=== PATIENT | female | born 1945 | race Caucasian/White ===

== ENCOUNTER 2018-05-25 12:55 | Inpatient (IN) | payer MEDICARE, OTHER, SELFPAY ==
[2018-05-11 11:13] VITALS: BP 141/92; PULSE 80; RESP 17; TEMP 37.2; O2SAT 97; BMI 29.5
[2018-05-25] VITALS (8 sets, daily range): BP systolic 112–159; BP diastolic 56–89; PULSE 67–85; RESP 14–18; TEMP 36.5–36.9; O2SAT 94–98; BMI 29.5; BMI 28.8
[2018-05-25] MEDS: Acetaminophen 500 MG Tablet 1000 MG PO ×2 (13:38→21:42)
[2018-05-25] MEDS: Celecoxib 200 MG Capsule 400 MG PO (13:38)
[2018-05-25] MEDS: oxyCODONE HCl Cr 10 MG Tablet PO (13:39)
--- NOTE | 2018-05-25 14:30 | KNEE_PTH ---
PATIENT: SHERIE FERMIN LOC: MS3 U#:[id number] AGE/SX: 73/F ROOM: [facility] [place] RE05/25/[address]: Dr. Chinmay Romero MD : [id number] BED: 1 DIS: 05/26/2018 SPEC #: [id number] RECD: 05/26/18 09:22 STATUS: CÉSAR RECynthia #: [id number] RACHNA: 05/25/18 14:[address]: Chinmay Romero DEPT: SURGICAL PATHOLOGY RECD BY: Torrey Andrade ENTERED: 05/26/18 11:05 SP TYPE: TOTAL KNEE OTHR DR: Dr. Edd Tran MD Tissues: Knee, NOS Procedures: Decalcification bone/plaque Surgery Specimen Level IV HEADER OPERATION: Total knee replacement PRE-OP DIAGNOSIS: Osteoarthritis TISSUE SUBMITTED: Bone and tissue MICROSCOPIC DIAGNOSIS Bone and tissue of knee, resection: Severe degenerative joint disease Mild synovial hyperplasia AM:noris 05/29/18 MICROSCOPIC DESCRIPTION Slides are reviewed. GROSS DESCRIPTION Received is one container designated bone and soft tissue knee. The specimen consists of multiple fragments of horta-yellow bone measuring in aggregate 12 x 10 x 4 cm. Also in the specimen container are multiple fragments of yellow-white soft tissue measuring in aggregate 7 x 6 x 3 cm. A number of bony fragments contain articular surfaces consistent with tibial plateau and femoral condyle and displaying prominent osteophyte formation, eburnation, and bone erosion. Double Back Operator sections are submitted in two cassettes as follows: 1 - soft tissue, 2 - bone after decalcification. / LING:sp 05/26/18 TC: 5 CPT: 76409, 12672
[2018-05-25] MEDS: Cefazolin 2 GM in 0.9% Normal Saline 100 ML IV (14:50)
--- NOTE | 2018-05-25 16:18 | PCM.OP.BLANK ---
Operative Report Date of Procedure: 05/25/18 Preoperative diagnosis: [Right] knee severe primary osteoarthritis Postoperative diagnosis: Same Title of procedure : [Right] total knee replacement Surgeon: Chinmay Romero MD Coloring Machine Operator: Kaykay Davis PA-C Anesthesia: Spinal Anesthesiologist: Dr. Ernandez Special medications: Ancef, tranexamic acid Indications for surgery: Patient is a [73]-year-old [female] with a history of knee arthritis appropriately treated and failed conservative measures and wished to proceed with total knee replacement. Patient was cleared for surgery by the medical doctor and has been evaluated by the anesthesia staff Findings: Intraoperative findings showed severe arthritis of the knee. Patient underwent knee replacement using [employer] tri[employer] total knee components. Size [5] femur, size [4] tibia, [35 x 10] asymmetric X3 patella, size [4-9 CS] X3 tibial polyethylene insert, knee was nicely balanced. Patella tracked well. Patient underwent standard wound closure in layers. Vicryl and strata fix sutures utilized. assistant golf coach, physician marketing operations assistant, was utilized throughout the entire procedure. They were vital in helping with patient positioning, holding of retractors, exposing the tissues adequately for safe completion of the procedure including cutting of the bone, helping roads and parking lots sweeper operator appropriate alignment and sizing of the components, implantation of the components, as well as wound closure, bandage application, and safe patient transfer. Without certified surgical first assistant, physician marketing operations assistant, surgical time would have been significantly increased, and surgical outcome could have been less optimal. Description of procedure: The patient was taken to the OR, transferred to the OR table. They were given a spinal anesthetic. Ancef was given IV preoperatively. Tranexamic acid was given IV preoperatively. Well-padded tourniquet was applied to the upper thigh of the operative leg. Nonoperative leg had a AMNA hose and SCD on throughout. Operative limb was prepped padded and draped in usual orthopedic sterile fashion for the procedure. We began by injecting the pain relieving solution in the anterior superior aspect of the knee region. The limb was exsanguinated, and the tourniquet was applied to 300 mmHg. Made a midline incision through skin, subcutaneous tissue, bringing down us on the extensor mechanism. Medial parapatellar arthrotomy was carried out. Straw-colored joint fluid was evacuated. We raised a sleeve of tissue off the upper medial tibia. Resected some of the infrapatellar fat pad. We remove degenerative medial and lateral meniscus. Removed bone spurs from about the joint. We removed tissue off the anterior aspect of the distal femur. Patella was translated laterally and/or everted as needed throughout the procedure. ACL was resected. PCL was preserved. Collateral ligaments were preserved. Physician placed the retractors and marketing operations assistant held retractors protecting above ligaments throughout the procedure. Drill was placed up the distal femur. Flex guide edson was placed up the femoral canal. We resected 8 mm off of the distal femur. 6? valgus cut. Next cutting block was applied to the front of the femur. 3? of external rotation . We sized off that block and decided on the appropriate size femur. 4-in-1 cutting block was applied to the distal femur and held in place with 2 pins. Coloring Machine Operator again held retractors to protect the soft tissues while surgeon performed anterior, posterior, and chamfer cuts. Bony fragments were removed. PCL retractor was placed and collateral ligament protectors placed by the surgeon, held by the assistance. Tibial external alignment guide was utilized under standard technique going down the shaft of the tibia, to the base of the second metatarsal. Appropriate posterior slope was built in. Coloring Machine Operator help roads and parking lots sweeper operator alignment. We went 2 mm off the deficient side of the tibia. Cutting block was held in place with 3 pins. Again checked the external alignment. Tibial cut carried out with a saw while the marketing operations assistant held retractors protecting the soft tissues about the anterior, medial, lateral, and posterior knee. Bone fragment removed. We then sized off the upper tibia with the help of the marketing operations assistant. We then checked flexion extension gaps finding them to be adequate and equal. Next the distal femoral trial was applied. Tibial tray was allowed to freefloat with a 9 mm insert. Knee was flexed and extended an external alignment guide is utilized. Tibial trial was pinned in place. Drill holes were placed into the distal femoral trial and it was removed. Punch was used on the upper tibial component and that was removed. The sclerotic bone was softened with a sharp pin. Bone spurs removed from the posterior medial and posterior lateral aspect of the femur while the marketing operations assistant lifted up on the distal femur and exposed each compartment. Patella was everted and measured and appropriate resection was carried out while the marketing operations assistant held the guide and patella in good position. Patellar remnant measured to be at or just greater than 14 mm. Patella was sized. Clamp was utilized. 3 drill holes were placed through the clamp held by the marketing operations assistant. Trial patella was placed and removed. Bleeding was controlled at the back of the knee with the bovey. Posterior knee soft tissues were carefully injected with pain relieving solution. Components were checked and open. Two full batches of bone cement were mixed. Knee was thoroughly irrigated by the marketing operations assistant while surgeon fashioned a bone plug that was placed in the femoral canal hole. The bony surfaces cleaned and dried. When the cement was of the appropriate texture the tibia, femur, and then patella was cemented in place. Coloring Machine Operator held retractors exposing the bony surfaces of the tibia and femur which were hammered in position. Patella clamped into position. The excess bone cement removed. A trial insert applied to the tibia. Knee was held in full extension while the cement hardened. While the cement was hardening pain relieving solution was injected throughout the knee. When cement was fully hardened tourniquet was deflated. We re-trialed with the help of the marketing operations assistant and then placed the appropriate sized polyethylene component. We thoroughly irrigated and debrided the knee. Bleeding controlled with the Bovie. Knee was again thoroughly irrigated. Patella noted to track nicely. We repaired the arthrotomy with a combination of #1 Vicryl and #2 strata fix. We did a mid layer of 1 Vicryl and #1 strata fix running. We then did inverted 2-0 vicryl . We then applied Steri-Strips over skin prep. Mepilex dressing applied. AMNA hose and SCDs applied. Patient was awoken from their anesthetic, transferred back to their own bed and recovery room in satisfactory condition. Second dose of IV Tranexamic acid was given while closing wound. Patient was admitted, appropriate IV antibiotic to be utilized as well as medication for DVT prevention. Hopeful discharge in 1-2 days. Hospitalist service and Physical therapy will be consulted. This note was generated with [employer] dictation software. It may contain incorrect words, spelling, and punctuation that were not noted in checking the note before signing.
--- NOTE | 2018-05-25 16:21 | OP.PCM_ITS ---
Operative Report Date of Procedure: 05/25/18 Preoperative diagnosis: [Right] knee severe primary osteoarthritis Postoperative diagnosis: Same Title of procedure : [Right] total knee replacement Surgeon: Chinmay Romero MD General I Farmworker: Kaykay Davis PA-C Anesthesia: Spinal Anesthesiologist: Dr. Ernandez Special medications: Ancef, tranexamic acid Indications for surgery: Patient is a [73]-year-old [female] with a history of knee arthritis appropriately treated and failed conservative measures and wished to proceed with total knee replacement. Patient was cleared for surgery by the medical doctor and has been evaluated by the anesthesia staff Findings: Intraoperative findings showed severe arthritis of the knee. Patient underwent knee replacement using [employer] tri[employer]im[employer]on total knee components. Size [5] femur, size [4] tibia, [35 x 10] asymmetric X3 patella, size [4-9 CS] X3 tibial polyethylene insert, knee was nicely balanced. Patella tracked well. Patient underwent standard wound closure in layers. Vicryl and strata fix sutures utilized. administrative services assistant, physician kitchen assistant, was utilized throughout the entire procedure. They were vital in helping with patient positioning, holding of retractors, exposing the tissues adequately for safe completion of the procedure including cutting of the bone, helping deaf interpreter appropriate alignment and sizing of the components, implantation of the components, as well as wound closure, bandage application, and safe patient transfer. Without surgical instruments inspector, physician kitchen assistant, surgical time would have been significantly increased, and surgical outcome could have been less optimal. Description of procedure: The patient was taken to the OR, transferred to the OR table. They were given a spinal anesthetic. Ancef was given IV preoperatively. Tranexamic acid was given IV preoperatively. Well-padded tourniquet was applied to the upper thigh of the operative leg. Nonoperative leg had a AMNA hose and SCD on throughout. Operative limb was prepped padded and draped in usual orthopedic sterile fashion for the procedure. We began by injecting the pain relieving solution in the anterior superior aspect of the knee region. The limb was exsanguinated, and the tourniquet was applied to 300 mmHg. Made a midline incision through skin, subcutaneous tissue, bringing down us on the extensor mechanism. Medial parapatellar arthrotomy was carried out. Straw-colored joint fluid was evacuated. We raised a sleeve of tissue off the upper medial tibia. Resected some of the infrapatellar fat pad. We remove degenerative medial and lateral meniscus. Removed bone spurs from about the joint. We removed tissue off the anterior aspect of the distal femur. Patella was translated laterally and/or everted as needed throughout the procedure. ACL was resected. PCL was preserved. Collateral ligaments were preserved. Physician placed the retractor s and kitchen assistant held retractors protecting above ligaments throughout the procedure. Drill was placed up the distal femur. Flex guide edson was placed up the femoral canal. We resected 8 mm off of the distal femur. 6? valgus cut. Next cutting block was applied to the front of the femur. 3? of external rotation . We sized off that block and decided on the appropriate size femur. 4-in-1 cutting block was applied to the distal femur and held in place with 2 pins. General I Farmworker again held retractors to protect the soft tissues while surgeon performed anterior, posterior, and chamfer cuts. Bony fragments were removed. PCL retractor was placed and collateral ligament protectors placed by the surgeon, held by the assistance. Tibial external alignment guide was utilized under standard technique going down the shaft of the tibia, to the base of the second metatarsal. Appropriate posterior slope was built in. General I Farmworker help deaf interpreter alignment. We went 2 mm off the deficient side of the tibia. Cutting block was held in place with 3 pins. Again checked the external alignment. Tibial cut carried out with a saw while the kitchen assistant held retractors protecting the soft tissues about the anterior, medial, lateral, and posterior knee. Bone fragment removed. We then sized off the upper tibia with the help of the kitchen assistant. We then checked flexion extension gaps finding them to be adequate and equal. Next the distal femoral trial was applied. Tibial tray was allowed to freefloat with a 9 mm insert. Knee was flexed and extended an external alignment guide is utilized. Tibial trial was pinned in place. Drill holes were placed into the distal femoral trial and it was removed. Punch was used on the upper tibial component and that was removed. The sclerotic bone was softe johanny with a sharp pin. Bone spurs removed from the posterior medial and posterior lateral aspect of the femur while the kitchen assistant lifted up on the distal femur and exposed each compartment. Patella was everted and measured and appropriate resection was carried out while the kitchen assistant held the guide and patella in good position. Patellar remnant measured to be at or just greater than 14 mm. Patella was sized. Clamp was utilized. 3 drill holes were placed through the clamp held by the kitchen assistant. Trial patella was placed and removed. Bleeding was controlled at the back of the knee with the bovey. Posterior knee soft tissues were carefully injected with pain relieving solution. Components were checked and open. Two full batches of bone cement were mixed. Knee was thoroughly irrigated by the kitchen assistant while surgeon fashioned a bone plug that was placed in the femoral canal hole. The bony surfaces cleaned and dried. When the cement was of the appropriate texture the tibia, femur, and then patella was cemented in place. General I Farmworker held retractors exposing the bony surfaces of the tibia and femur which were hammered in position. Patella clamped into position. The excess bone cement removed. A trial insert applied to the tibia. Knee was held in full extension while the cement hardened. While the cement was hardening pain relieving solution was injected throughout the knee. When cement was fully hardened tourniquet was deflated. We re-trialed with the help of the kitchen assistant and then placed the appropriate sized polyethylene component. We thoroughly irrigated and debrided the knee. Bleeding controlled with the Bovie. Knee was again thoroughly irrigated. Patella noted to track nicely. We repaired the arthrotomy with a combination of #1 Vicryl and #2 strata fix. We did a mid layer of 1 Vicryl and #1 strata fix running. We then did inverted 2-0 vicryl . We then applied Steri-Strips over skin prep. Mepilex dressing applied. AMNA hose and SCDs applied. Patient was awoken from their anesthetic, transferred back to their own bed and recovery room in satisfactory condition. Second dose of IV Tranexamic acid was given while closing wound. Patient was admitted, appropriate IV antibiotic to be utilized as well as medication for DVT prevention. Hopeful discharge in 1-2 days. Hospitalist service and Physical therapy will be consulted. This note was generated with [employer] dictation software. It may contain incorrect words, spelling, and punctuation that were not noted in checking the note before signing.
--- NOTE | 2018-05-25 16:45 | RAD_ITS ---
STUDY: X-RAY - RIGHT KNEE REASON FOR EXAM: Female, 73 years old. Postop TECHNIQUE: 2 view(s) of the knee. COMPARISON: None. FINDINGS: Knee prosthesis has been placed in anatomic alignment and position.. There is residual gas and fluid in the suprapatellar bursa postsurgically. There are also radiopaque densities posterior to the patella on the lateral view possibly representing antibiotic beads however clinical correlation is recommended RAD/Knee 1 or 2 Views IMPRESSION: Status post knee prosthesis Electronically Signed: Jorge Lindsey MD at 17:08 EST , Service support ,
[2018-05-25] MEDS: Aspirin 325 MG Tablet PO (18:01)
[2018-05-25] MEDS: Cefazolin 1 GM/50 ML BAG IV (18:01)
[2018-05-25] MEDS: Folic Acid 1 MG Tablet PO (18:01)
[2018-05-25] MEDS: Lactated Ringers 1,000 ML 125 ML IV (20:51)
[2018-05-25] MEDS: Ondansetron 4 MG/2 ML Vial IV (20:51)
[2018-05-25] MEDS: Senna/Docusate Sodium 1 Tablet 2 TABLET PO (21:43)
[2018-05-25] MEDS: morphine SR 15 MG Tablet PO (21:43)
[2018-05-26] MEDS: Cefazolin 1 GM/50 ML BAG IV ×2 (00:23→06:47)
[2018-05-26 02:14] VITALS: BP 107/74; PULSE 60; RESP 16; TEMP 36.8; O2SAT 97
[2018-05-26] MEDS: Acetaminophen 500 MG Tablet 1000 MG PO ×2 (05:10→13:08)
[2018-05-26] MEDS: 0.9% NaCl Peripheral Flush Adult/Peds IV ×2 (05:12→06:48)
[2018-05-26 05:51] LABS: Hematocrit 31.3 % (37-47); Hemoglobin 10.2 g/dl (12.0-15.0); Mean Corp Hgb Conc 32.6 g/gl (32-36); Mean Corpuscular Hgb 29.4 pg (27.0-32.0); Mean Corpuscular Volume 90.2 fL (81-99); Mean Platelet Vol. 10.8 fl (6.2-12.0); Platelet Count 193 K/mm3 (150-450); RBC Distribution Width CV 13.8 % (11.6-14.6); RBC Distribution Width SD 43.9 fl (35.1-43.9); Red Blood Count 3.47 M/mm3 (4.2-5.4); White Blood Count 9.3 K/mm3 (4.4-11.0)
[2018-05-26 05:54] LABS: Scan Indicated on CBC? Y/N NO
[2018-05-26 06:05] LABS: Anion Gap 9 (5-15); BUN 26 mg/dL (7-18); BUN/Creat Ratio 21.8 RATIO (10-20); Calcium,Total 8.5 mg/dL (8.5-10.1); Chloride 108 mmol/L (98-107); Creatinine, Serum 1.19 mg/dL (0.55-1.02); EST Glomerular Filtration Rate 47 mL/min (>60); Est Glom Filt Rate - Afr Amer 57 mL/min (>60); Estimated Creatinine Clearance 33.79 ml/min; Glucose 95 mg/dL (74-106); Sodium Level 142 mmol/L (136-145)
--- NOTE | 2018-05-26 06:23 | PCM.PN.ORT ---
Subjective: Patient is postoperative day #1 from right total knee replacement. She denies chest pain or shortness of breath. No productive cough. She did vomit last evening. She feels fine now. She is hoping for discharge to home later today. Pain is tolerable. Objective: Right knee bandage is on clean and dry. Mepilex dressing has one spot of dried blood, small, central. Knee motion is 0-70 degrees. She is able to do a straight leg raise right and left leg. She has good active plantar flexion dorsiflexion toes and ankles. AMNA hose and SCDs are on. No calf pain or swelling. Negative Homans sign. Clinically knees are stable and well aligned. X-rays AP and lateral of right knee from recovery room shows a cemented [place] total knee replacement in good position without obvious loosening failure or fracture. X-ray report reviewed Laboratory work and vital signs reviewed - Physical Exam Vital Signs Temp Pulse Resp BP Pulse Ox 98.2 F 60 16 107/74 97 05/26/18 02:14 05/26/18 02:14 05/26/18 02:14 05/26/18 02:14 05/26/18 02:14 Oxygen Flow Rate (L/min) 2 Oxygen Delivery Method Nasal Cannula Weight: 73.936 kg Body Mass Index (BMI) 28.8 Intake and Output for Last 24 Hours 05/24/18 05/25/18 05/26/18 23:59 23:59 23:59 Intake Total 1979 2481 / 2481 Output Total 700 / 700 Balance 1979 1781 / 1781 Laboratory Tests Past 24 Hrs 05/26/18 05/26/18 05:34 05:34 WBC 9.3 RBC 3.47 L Hgb 10.2 L Hct 31.3 L MCV 90.2 MCH 29.4 MCHC 32.6 RDW 13.8 RDW Differential 43.9 Plt Count 193 MPV 10.8 Sodium 142 Potassium 4.0 Chloride 108 H Carbon Dioxide 25.0 Anion Gap 9 BUN 26 H Creatinine 1.19 H Estim Creat Clear Calc 33.79 Est GFR (MDRD) Af Amer 57 L Est GFR (MDRD) Non-Af 47 L BUN/Creatinine Ratio 21.8 H Glucose 95 Calcium 8.5 Medical Necessity - Tobacco Use Smoking Status: Never smoker Assessment/Plan Right total knee replacement for arthritis, continue current treatment with therapy, ice, pain medications. Incentive spirometer use. Aspirin for DVT prevention. Continue knee and ankle range of motion as explained. Weightbearing as tolerated. Hopeful discharge to home later today. She is planning on doing outpatient physical therapy at [facility]. I recommended [id number] stool softener for her. She understands wound and bandage care.
[2018-05-26] MEDS: Aspirin 325 MG Tablet PO (07:55)
[2018-05-26] MEDS: Senna/Docusate Sodium 1 Tablet 2 TABLET PO (07:56)
[2018-05-26] MEDS: amLODIPine 2.5 MG Tablet PO (07:56)
[2018-05-26] MEDS: Lisinopril 20 MG Tablet PO (07:57)
[2018-05-26 08:13] VITALS: BP 109/67; PULSE 98; RESP 18; TEMP 37.2; O2SAT 96
[2018-05-26] MEDS: Ondansetron 4 MG/2 ML Vial IV (09:19)
--- NOTE | 2018-05-26 11:40 | CASEMGMT ---
SILVIO LUCERO Face to Face with patient for initial transition planning/care coordination assessment. RN CM introduced self and role at [facility]. Patient sitting in chair, alert and oriented. Patient willing to participate in assessment and is able to answer all questions appropriately. Care providers, pharmacy, and demographics verified. Patient wishes to discharge home with therapy setup with [facility]. SILVIO LUCERO to call and setup therapy at [facility]. Patient states she has no further needs or concerns at this time. CM to follow for discharge planning needs that may arise. PCP: Marc Specialists: None Preferred Pharmacy: [facility] Insurance: Juan C O[employer] supp Prescription Benefit: Yes Living Will/HPOA: Yes, marjorie Negro HPOA LNOK: Son Living Arrangements: Patient lives alone in 2 story home with bed and bath on the first floor. Transportation: Son DME/C: Patient has cane, grab bars, walker, rollator. Patient to have therapy at [facility] Disposition Plan: Patient to discharge home with outpatient therapy, family support, and follow-up plans in place. Carlene ARIAS, RN, CM
[2018-05-26] MEDS: oxyCODONE 5 MG Tablet PO (13:08)
--- NOTE | 2018-05-26 14:07 | DCINST_ITS ---
Discharge Diet: No Restrictions Discharge Activity: May Not Drive May shower in (days): 2 Ice area for (Minutes): 20 - every hour while awake. Weight Bearing Status: Weight bearing as tolerated Elevate: Operative Extremity Additional Activity Instructions:: Wear elastic stockings for 2 weeks after your surgery. see postop pink sheet Call your doctor if your incision/area has: Continuous Slow Oozing, Sudden Increased Bleeding, Increased Pain/ Swelling, Increased Redness, Foul Smelling Discharge Call your doctor if you observe: Fever of 101 or Higher, Coldness, Increased Pain, Numbness or Tingling, Change in Color, Calf discomfort, Uncontrolled pain Remove Dressing in (days):: 5 Cleanse incision/area with: Soap & Water Additional Dressing/Incision Instructions:: See postop pink sheet Allergies/Adverse Reactions: Allergies SEASONAL ALLERGIES Allergy (Uncoded 05/25/18 13:29) Other Medications to take at Discharge Amlodipine [Norvasc] 2.5 mg PO DAILY 05/11/18 Calcium Carbonate/Vitamin D3 [Calcium 600-Vit D3 200 Tablet] 1 each PO DAILY 05/11/18 Cholecalciferol (Vitamin D3) [Vitamin D3] 1,000 unit PO DAILY 05/11/18 Folic Acid 1 mg PO SUMOWETHFRSA 05/11/18 Lisinopril [Zestril] 20 mg PO DAILY 05/11/18 Multivitamin [Multiple Vitamins] 1 each PO DAILY 05/11/18 Acetaminophen [Tylenol] 1,000 mg PO Q8 tablet 05/26/18 Aspirin 325 mg PO BIDCM #28 tablet 05/26/18 Oxycodone [Oxyir] 5 - 10 mg PO Q4H PRN PRN 7 Days #56 tab 05/26/18 Senna/Docusate Sodium [Senokot-S] 2 tablet PO BID #30 tablet 05/26/18 The following prescriptions were given: Oxycodone [Oxyir] 5 - 10 mg PO Q4H PRN PRN 7 Days #56 tab PRN Reason: Mod-Severe Pain (4-04/22) Aspirin 325 mg PO BIDCM #28 tablet Senna/Docusate Sodium [Senokot-S] 2 tablet PO BID #30 tablet Primary Care Physician: Edd Tran [Primary Care Provider] - Test Results: Test results from this visit will be discussed in further detail at your follow- up appointment, if applicable. Proposed Discharge Date: 05/26/18
== END 2018-05-26 14:20 | disposition home or self-care (01) | DRG 470 ==
PROVIDERS: Admitting Provider Orthopaedic Surgery; Family Provider Internal Medicine; PCP Internal Medicine; Referring Provider Orthopaedic Surgery; Visit Provider Orthopaedic Surgery
PROC: 0SRC0J9 Replacement of Right Knee Joint with Synthetic Substitute, Cemented, Open Approach (ICD-10-PCS; CPT 27447; principal; 2018-05-25 14:05)
DX: M17.11 Unilateral primary osteoarthritis, right knee (principal)
CPT/HCPCS: 36415; 73560; 80048; 85027; 87077; 87081; 88305; 88311; 97110; 97162; 97165; 97530; C1776; J7040; J7120; A4216; J2405

== ENCOUNTER → 2020-02-18 09:57 | Outpatient (CLI) | payer MEDICARE, OTHER, SELFPAY ==
[2018-05-25 17:35] VITALS: BMI 28.8
--- NOTE | 2020-02-18 10:02 | RAD_ITS ---
STUDY: X-RAY - LEFT HAND REASON FOR EXAM: Female, 74 years old. RHEUMATOID ARTHRITIS, OSTEOARTHRITIS TECHNIQUE: 3 view(s) of the hand. COMPARISON: None. FINDINGS: Normal radiocarpal articulation. Normal distal radioulnar joint. Normal visualized carpal bones. There is degenerative joint disease of the scaphotrapezium / trapezoid articulation. The remainder of the carpal articulations are normal. There is degenerative arthrosis of the carpometacarpal (CMC) articulation of the thumb. Normal second through fifth carpometacarpal joints. Normal metacarpi. Normal metacarpophalangeal joint of the thumb. Normal interphalangeal joint of the thumb. Normal proximal and distal phalanges of the thumb. Normal metacarpophalangeal joints of the second through fifth fingers. There is diffuse articular joint space narrowing of the proximal and distal interphalangeal joints of the second through fifth fingers, but without erosive changes or periarticular soft tissue swelling. Normal phalanges of the second through fifth fingers. The soft tissue structures are unremarkable. RAD/Hand Min 3 Views IMPRESSION: Degenerative joint disease of the hand and wrist, as described above. Electronically Signed: Jason Wilson MD at 7:26 EDT Tel , Service support ,
--- NOTE | 2020-02-18 10:02 | RAD_ITS ---
STUDY: X-RAY - RIGHT HAND REASON FOR EXAM: Female, 74 years old. RHEUMATOID ARTHRITIS, OSTEOARTHRITIS TECHNIQUE: 3 view(s) of the hand. COMPARISON: None. FINDINGS: There is joint space narrowing of the radiocarpal articulation consistent with degenerative arthrosis. Normal distal radioulnar joint. Normal visualized carpal bones. There is degenerative joint disease of the scaphotrapezium / trapezoid articulation. The remainder of the carpal articulations are normal. There is degenerative arthrosis of the carpometacarpal (CMC) articulation of the thumb. Normal second through fifth carpometacarpal joints. Normal metacarpi. Normal metacarpophalangeal joint of the thumb. Normal interphalangeal joint of the thumb. Normal proximal and distal phalanges of the thumb. Normal metacarpophalangeal joints of the second through fifth fingers. There is diffuse articular joint space narrowing of the proximal and distal interphalangeal joints of the second through fifth fingers, but without erosive changes or periarticular soft tissue swelling. Normal phalanges of the second through fifth fingers. The soft tissue structures are unremarkable. RAD/Hand Min 3 Views IMPRESSION: Degenerative joint disease of the hand and wrist, as described above. Electronically Signed: Jason Wilson MD at 7:27 EDT Tel , Service support ,
--- NOTE | 2020-02-18 10:02 | RAD_ITS ---
STUDY: X-RAY - PELVIS REASON FOR EXAM: Female, 74 years old. RHEUMATOID ARTHRITIS, OSTEOARTHRITIS TECHNIQUE: One view of the pelvis was obtained. COMPARISON: None. FINDINGS: There is a non-specific bowel gas pattern. Normal visualized soft tissue structures. Normal bilateral iliac wings, sacroiliac joints and visualized sacrum. Normal visualized bilateral superior and inferior pubic rami. Normal pubic symphysis. Normal ischial tuberosities. Normal visualized right femoral head. Normal right acetabulum. Normal right hip joint. There are osteoarthritic changes of the left femoral head with marginal osteophyte formation. Normal left acetabulum. Normal left hip joint. RAD/Pelvis 1 or 2 Views IMPRESSION: Mild left hip arthrosis. Electronically Signed: Jason Wilson MD at 7:25 EDT Tel , Service support ,
[2020-02-18 12:51] LABS: Absolute Lymphocyte Count 1.76 X10^3/uL (0.83-4.51); Absolute Neutrophil Count 6.9 X10^3/uL (2.0-7.7); Basophil# 0.05 X10^3/uL; Basophil% 0.5 % (0-1); Eosinophil# 0.06 X10^3/uL; Eosinophils% 0.6 % (0-5); Hematocrit 44.1 % (37-47); Hemoglobin 14.3 g/dL (12.0-15.0); Lymphocyte # 1.76 X10^3/ul (4.0); Lymphocyte % 18.8 % (19-41); Mean Corp Hgb Conc 32.4 g/dL (32-36); Mean Corpuscular Hgb 29.1 pg (27.0-32.0); Mean Corpuscular Volume 89.8 fL (81-99); Mean Platelet Vol. 11.2 fl (6.2-12.0); Monocyte# 0.53 X10^3/uL; Monocyte% 5.7 % (0-10); NRBC Flagged by Analyzer 0 % (0-5); Neutrophil # 6.91 X10^3/uL (2.7-7.7); Neutrophil % 74.1 % (47-70); Platelet Count 296 K/mm3 (150-450); RBC Distribution Width CV 14.4 % (11.6-14.6); RBC Distribution Width SD 46.3 fl (35.1-43.9); Red Blood Count 4.91 M/mm3 (4.2-5.4); White Blood Count 9.3 K/mm3 (4.4-11.0)
[2020-02-18 12:53] LABS: Erythrocyte Sedimentation Rate 5 mm/hr (0-30)
[2020-02-18 13:11] LABS: ALB/GLOB Ratio 1.1 RATIO (0.9-2.4); AST(SGOT) 31 U/L (15-37); Alanine Aminotransfer ALT/SGPT 24 U/L (13-56); Albumin, Serum 4.3 g/dL (3.2-5.0); Alkaline Phosphatase 124 U/L (45-117); Anion Gap 6 (5-15); BUN 30 mg/dL (7-18); CRP 2.98 mg/L (0.0-3.0); Calcium,Total 9.8 mg/dL (8.5-10.1); Chloride 106 mmol/L (98-107); Creatinine, Serum 1.25 mg/dL (0.55-1.02); EST Glomerular Filtration Rate 44 mL/min (>60); Est Glom Filt Rate - Afr Amer 54 mL/min (>60); Globulin 3.8 g/dL (2.2-4.2); Glucose 93 mg/dL (74-106); Protein, Total 8.1 g/dL (6.4-8.2); Rheumatoid Factor < 10.0 IU/mL (<15); Sodium Level 141 mmol/L (136-145)
[2020-02-18 13:43] LABS: Hepatitis B Surface Antibody Non-Reactive; Hepatitis B Surface Antigen Non-Reactive (Nonreactive); Hepatitis C Antibody Non-Reactive (Nonreactive)
[2020-02-19 21:06] LABS: ANTINUCLEAR ANTIBODIES DIRECT Negative (Negative)
[2020-02-21 04:03] LABS: CCP IgG Antibodies 11 units (0-19); Hepatitis B Core AB IgM Negative (Negative)
== END ==
PROVIDERS: PCP Internal Medicine; Referring Provider Internal Medicine Rheumatology; Visit Provider Internal Medicine Rheumatology
DX: M05.79 Rheumatoid arthritis with rheumatoid factor of multiple sites without organ or systems involvement (principal); M19.041 Primary osteoarthritis, right hand; I10 Essential (primary) hypertension; J30.9 Allergic rhinitis, unspecified; Z79.899 Other long term (current) drug therapy
CPT/HCPCS: 36415; 72170; 73130; 80053; 85025; 85652; 86038; 86140; 86200; 86431; 86705; 86706; 86803; 87340

== ENCOUNTER → 2020-03-06 08:45 | Outpatient (CLI) | payer MEDICARE, OTHER, SELFPAY ==
[2018-05-25 17:35] VITALS: BMI 28.8
[2020-03-06 09:52] LABS: Absolute Lymphocyte Count 3.06 X10^3/uL (0.83-4.51); Basophil# 0.06 X10^3/uL; Basophil% 0.5 % (0-1); Eosinophil# 0.09 X10^3/uL; Eosinophils% 0.7 % (0-5); Hemoglobin 12.8 g/dL (12.0-15.0); Lymphocyte # 3.06 X10^3/ul (4.0); Lymphocyte % 23.1 % (19-41); Mean Corp Hgb Conc 32.8 g/dL (32-36); Mean Corpuscular Hgb 29.7 pg (27.0-32.0); Mean Corpuscular Volume 90.5 fL (81-99); Mean Platelet Vol. 10.6 fl (6.2-12.0); Monocyte# 0.92 X10^3/uL; NRBC Flagged by Analyzer 0 % (0-5); Neutrophil # 9.04 X10^3/uL (2.7-7.7); Neutrophil % 68.3 % (47-70); Platelet Count 249 K/mm3 (150-450); RBC Distribution Width CV 14.2 % (11.6-14.6); RBC Distribution Width SD 45.9 fl (35.1-43.9); Red Blood Count 4.31 M/mm3 (4.2-5.4); White Blood Count 13.2 K/mm3 (4.4-11.0)
[2020-03-06 10:29] LABS: ALB/GLOB Ratio 1.1 RATIO (0.9-2.4); AST(SGOT) 21 U/L (15-37); Alanine Aminotransfer ALT/SGPT 19 U/L (13-56); Albumin, Serum 3.8 g/dL (3.2-5.0); Alkaline Phosphatase 104 U/L (45-117); Anion Gap 3 (5-15); BUN 24 mg/dL (7-18); BUN/Creat Ratio 21.8 RATIO (10-20); Calcium,Total 9.7 mg/dL (8.5-10.1); Chloride 108 mmol/L (98-107); EST Glomerular Filtration Rate 51 mL/min (>60); Est Glom Filt Rate - Afr Amer 62 mL/min (>60); Globulin 3.6 g/dL (2.2-4.2); Glucose 89 mg/dL (74-106); Protein, Total 7.4 g/dL (6.4-8.2); Sodium Level 141 mmol/L (136-145)
[2020-03-08 14:08] LABS: Red Blood Cell Count Test/G6PD 4.41 x10E6/uL (3.77-5.28)
[2020-03-08 16:59] LABS: G6PD Quant Test 332 (146-376)
== END ==
PROVIDERS: PCP Internal Medicine; Referring Provider Internal Medicine Rheumatology; Visit Provider Internal Medicine Rheumatology
DX: M05.79 Rheumatoid arthritis with rheumatoid factor of multiple sites without organ or systems involvement (principal); M19.041 Primary osteoarthritis, right hand; I12.9 Hypertensive chronic kidney disease with stage 1 through stage 4 chronic kidney disease, or unspecified chronic kidney disease; N18.9 Chronic kidney disease, unspecified; J30.9 Allergic rhinitis, unspecified; Z79.899 Other long term (current) drug therapy
CPT/HCPCS: 36415; 80053; 82955; 85025